=== PATIENT | female | born 1985 | race Caucasian/White ===

== ENCOUNTER 2017-05-30 15:02 | Emergency (ER) | payer OTHER ==
[~2017-05-30] VITALS: Ht 170.2 cm; Wt 65.8 kg
[2017-05-30] MEDS ORDERED: NKM (15:20)
[2017-05-30 15:34] VITALS: BP 121/89
[2017-05-30] MEDS ORDERED: METHOCARBAMOL500 MG ORAL (15:40)
[2017-05-30] MEDS ORDERED: TYLENOL EXTRA500 MG ORAL (15:40)
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
[2017-05-30 15:46] VITALS: BP 121/89
== END 2017-05-30 16:15 | disposition home or self-care (01) ==
LOC: EMR 15:25
DX: M54.2 Cervicalgia (principal); R01.1 Cardiac murmur, unspecified; Z88.8 Allergy status to other drugs, medicaments and biological substances; V43.52XA Car driver injured in collision with other type car in traffic accident, initial encounter; Y92.410 Unspecified street and highway as the place of occurrence of the external cause
CPT/HCPCS: 99284